=== PATIENT | male | born 1985 | race Two or more races ===

== ENCOUNTER 2017-11-26 17:32 | Emergency (ER) | payer OTHER ==
[~2017-11-26] VITALS: Ht 180.3 cm; Wt 83.9 kg
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
--- NOTE | 2017-11-26 19:59 | NUR ---
RECIEVED REPORT FROM YANN BASS. INFORMED ME THAT PT HAD STEPPED OUT OF THE HOSP WITH [employer] AND HAS NOT BEEN SEEN SINCE. PT HAD ELOPED PRIOR TO START OF SHIFT.
[2017-11-26 20:26] VITALS: BP 128/80
== END 2017-11-26 20:27 | disposition left against medical advice (07) ==
LOC: ER 17:35
DX: S31.100D Unspecified open wound of abdominal wall, right upper quadrant without penetration into peritoneal cavity, subsequent encounter (principal)
CPT/HCPCS: 99283; A4606; Z7610

== ENCOUNTER 2020-04-11 15:41 | Inpatient (IN) | payer MEDICAID ==
[~2020-04-11] VITALS: Ht 177.8 cm; Wt 70.8 kg
--- NOTE | 2020-04-11 15:45 | NUR ---
PT BIB RA 878,SUDDEN EPIGASTRIC PAIN X 20 MINUTES AFTER EATING PORK RIND. VS CHECKED. SEEN BY
[2020-04-11] MEDS ORDERED: LIDOCAINE VISCOUS 2% UD 15 ML UDC ONE (15:59)
[2020-04-11] MEDS ORDERED: ONDANSETRON HCL/PF 4 MG/2 ML VIAL ONE (15:59)
[2020-04-11] MEDS ORDERED: FAMOTIDINE/PF INJ 20 MG/2 ML VIAL IV ONE ×2 (15:59→16:00)
[2020-04-11] MEDS ORDERED: MAG HYDROX/AL HYDROX/SIMETH 30 ML UDC ONE (15:59)
[2020-04-11] MEDS ORDERED: ONDANSETRON HCL/PF 4 MG/2 ML VIAL IVP ONE (16:00)
[2020-04-11] MEDS ORDERED: IV NS 0.9% 1,000 ML BAG IV ONE (16:00)
[2020-04-11] MEDS ORDERED: LIDOCAINE VISCOUS 2% UD 15 ML UDC MM ONE (16:00)
[2020-04-11] MEDS ORDERED: MAG HYDROX/AL HYDROX/SIMETH 30 ML UDC PO ONE (16:00)
[2020-04-11 16:26] LABS: BASOPHILS % (AUTO) 0.2 % (0.0-2.0); EOSINOPHILS % (AUTO) 0.9 % (0.0-6.0); HEMATOCRIT 44 % (39-51); HEMOGLOBIN 14.5 g/dL (13.5-17.5); LYMPHOCYTES # (AUTO) 1.9 /CMM (0.8-4.8); LYMPHOCYTES % (AUTO) 12.1 % (20.0-44.0); MEAN CORPUSCULAR HGB CONC 33 g/dl (31.0-36.0); MEAN CORPUSCULAR VOLUME 90 fL (80-96); MONOCYTES # (AUTO) 1.1 /CMM (0.1-1.30); MONOCYTES % (AUTO) 7.3 % (2.0-12.0); NEUTROPHILS # (AUTO) 12.2 /CMM (1.8-8.9); NEUTROPHILS % (AUTO) 79.5 % (43.0-81.0); PLATELET COUNT (AUTO) 280 /CMM (150-450); RED BLOOD CELL COUNT(AUTO) 4.86 MIL/uL (4.5-6.0); WHITE BLOOD COUNT (AUTO) 15.3 K/uL (4.3-11.0)
--- NOTE | 2020-04-11 16:33 | NUR ---
attempting to collect urine, but pt states he still is unable to pee at the moment.
[2020-04-11 16:38] LABS: CALCIUM, SERUM 8.7 mg/dL (8.5-10.1); CREATININE 1.3 mg/dL (0.6-1.3); POTASSIUM 3.6 mmol/L (3.5-5.1)
[2020-04-11 17:00] LABS: ALBUMIN 3.5 g/dL (3.4-5.0); BILIRUBIN,DIRECT 0.1 mg/dL (0.0-0.2); BILIRUBIN,TOTAL 0.4 mg/dL (0.2-1.0); TOTAL PROTEIN, SERUM 7.1 g/dL (6.4-8.2)
[2020-04-11 17:14] LABS: BILIRUBIN,URINE Negative (NEGATIVE); BLOOD, URINE Negative Ery/uL (NEGATIVE); COLOR,URINE YELLOW (YELLOW); LEUKOCYTE ESTERASE ,URINE Negative (NEGATIVE); NITRITE, URINE Negative (NEGATIVE); PH,URINE 6.5 (5.0-8.0); PROTEIN,URINE Negative (NEGATIVE); UGLUCOSE Negative (NEGATIVE); UROBILINOGEN,URINE 0.2 EU/dL (0.2)
[2020-04-11] MEDS ORDERED: PIPERACILLIN /TAZOBACTAM 3.375 G in IV D5W 50 ML IV ONE (17:30)
[2020-04-11] MEDS ORDERED: MORPHINE SULFATE INJ 2 MG/ML DISP.SYRIN IV ONE (17:30)
[2020-04-11] MEDS ORDERED: FLAGYL/NS RTU 500 MG/100 ML PIGGYBACK IV ONE (17:30)
[2020-04-11] MEDS ORDERED: VANCOMYCIN 1 GM in IV D5W 250 ML IV ONE (17:30)
--- NOTE | 2020-04-11 17:54 | NUR ---
PAGED EPIC, SECOND ATTEMPT.
--- NOTE | 2020-04-11 18:15 | NUR ---
REFUSED TO BE SWABBED FOR COVID TESTING
--- NOTE | 2020-04-11 18:30 | NUR ---
consent obtained from pt for procedure
[2020-04-11] MEDS ORDERED: MORPHINE SULFATE INJ 4 MG/ML DISP.SYRIN ONE (18:37)
[2020-04-11] MEDS ORDERED: METRONIDAZOLE 500MG/ NS 100ML 500 MG in PREMIX 1 EA IV ONE (19:00)
--- NOTE | 2020-04-11 19:17 | NUR ---
LAB CALLED REGARDING NEGATIVE COVID RESULT.
[2020-04-11] MEDS ORDERED: BUPIVACAINE 0.25% 75 MG/30 ML VIAL ONE (19:19)
[2020-04-11] MEDS ORDERED: ANESTHESIA TRAY IN PYXIS 1 EA TRAY MC ONE (19:19)
[2020-04-11] MEDS ORDERED: LIDOCAINE 1% INJ 50 ML MDV IJ ONE (19:19)
[2020-04-11] MEDS ORDERED: ONDANSETRON HCL/PF 4 MG/2 ML VIAL IVP PRN (19:30)
[2020-04-11] MEDS ORDERED: IV NS 0.9% 1,000 ML IV PRN (19:30)
[2020-04-11] MEDS ORDERED: MORPHINE SULFATE INJ 2 MG/ML DISP.SYRIN IV PRN (19:30)
[2020-04-11] MEDS ORDERED: FENTANYL PF 100MCG/2ML AMPUL ONE (19:36)
[2020-04-11] MEDS ORDERED: MIDAZOLAM HCL 2 MG/2ML VIAL ONE (19:36)
[2020-04-11] MEDS ORDERED: ROCURONIUM BROMIDE 50 MG/5 ML ONE (19:36)
[2020-04-11] MEDS ORDERED: SUCCINYLCHOLINE CHLORIDE 20 MG/ML VIAL ONE (19:36)
--- NOTE | 2020-04-11 19:38 | NUR ---
PATIENT TAKEN TO SURGERY BY TEAM
[2020-04-11] MEDS ORDERED: METHYLENE BLUE 10 ML VIAL ONE (20:29)
--- NOTE | 2020-04-11 20:42 | NUR ---
NEW BED IS 111
--- NOTE | 2020-04-11 20:45 | NUR ---
RN NOTES RECEIVED CALL FROM ER, SPOKE WITH JAVY (RN) HE PROVIDED REPORT REGARDING PATIENT. PATIENT CURRENTLY IN OR FOR LAPAROSCOPY WITH INTENT TO FIND AND CLOSE PERFORATED INTESTINE. ONCE PT IS OUT OF OR WILL BE TRANSFERRED AND ADMITTED TO [facility] ROOM 111. GLASS LOADING EQUIPMENT TENDER MADE AWARE. AWAITING PATIENT TO BE TRANSFERRED TO [facility] RM 111.
--- NOTE | 2020-04-11 20:51 | NUR ---
REPORT GIVEN TO ISIDORO COELLO RN FOR ISSAC.
--- NOTE | 2020-04-11 23:00 | NUR ---
"RN NOTE | ADMISSION RECEIVED PATIENT FROM OR S/P LAPAROSCOPY WITH INTENT TO FIND AND CLOSE PERFORATED INTESTINE POSSIBLE EXPLORATORY LAPAROTOMY, ABD WASH OUT AND PLACEMENT OF MORRO DRAIN, VIA MEDICAL BED ACCOMPANIED BY 2 STAFF RNs AND TRANSFERRED TO BED VIA 2 PERSON ASSIST IN ROOM 11. PT IS ALERT AND ORIENTED X3-4. PT ON ROOM AIR WITH RESPIRATIONS EVEN AND UNLABORED. COMPREHENSIVE PHYSICAL ASSESSMENT DONE. CALL LIGHT WITHIN REACH, SAFETY MEASURES IN PLACE, WILL CONTINUE MONITOR AND ASSESS THROUGHOUT THE SHIFT. WILL CARRY OUT MD ORDERS ACCORDINGLY."
[2020-04-11] MEDS ORDERED: HYDROMORPHONE 1 MG/1 ML DISP.SYRIN IV PRN ×2 (23:30)
[2020-04-12] VITALS: BP 119/73
[2020-04-12] MEDS ORDERED: PIPERACILLIN /TAZOBACTAM 4.5 G in IV D5W 50 ML IV SCH ×2
--- NOTE | 2020-04-12 00:02 | NUR ---
RN NOTES Felisha Bentley from [facility] called to relay CT result. Dawson, primary RN aware. Patient just came from surgery
[2020-04-12] MEDS: IV LR 1000 ML 1,000 ML IV PRN ×3 (00:19→17:40)
[2020-04-12] MEDS: PIPERACILLIN /TAZOBACTAM 3.375 G in IV D5W 100 ML IV SCH ×4 (00:21→23:08)
[2020-04-12] MEDS: PANTOPRAZOLE 40 MG VIAL IV SCH ×3 (00:23→20:39)
--- NOTE | 2020-04-12 01:45 | NUR ---
RN NOTES COMMUNICATED AND ENDORSED TO MARCO BERNAL THE FOLLOWING CXR RESULT: 1. The distal tip of the new nasogastric tube is just below the diaphragm the side-hole projecting in the distal esophageal region, advancement of the catheter by 10 cm is recommended. 2. There is evidence for acute intrathoracic abnormality.3. Small amount of pneumoperitoneum below the right hemidiaphragm correlates with the CT abdomen findings performed earlier. MARCO BERNAL ACKNOWLEDGED. ADVISED PRIMARY RN TO ADVANCE INSERTION OF NGT CATHETER BY 10 CM, THEN WILL NEED REPEAT CXR TO CHECK FOR PLACEMENT. BALLISTIC TECHNICIAN MADE AWARE AND WILL CARRY OUT ORDER ADVISED.
--- NOTE | 2020-04-12 03:00 | NUR ---
RN NOTES NO NOTED CHANGES TO PATIENT CONDITION/STATUS. KNOCKUP WORKER MADE AWARE. WILL CONTINUE TO MONITOR AND REASSESS FOR ANY CHANGES THROUGHOUT THE SHIFT.
[2020-04-12 04:00] VITALS: BP 123/71
--- NOTE | 2020-04-12 04:10 | NUR ---
RN NOTES CARRIED OUT MD ORDER TO ADVANCE NGT PLACEMENT BY 10CM; PLACEMENT VERIFIED AND CONFIRMED VIA AUSCULTATION WITH ANOTHER RN (VIVIAN). WILL REQUEST FOR STAT CHEST XRAY TO VERIFY AND CONFIRM PLACEMENT. SUPERVISOR DOG LICENSE OFFICER MADE AWARE. WILL CONTINUE TO ASSESS AND MONITOR THROUGHOUT THE SHIFT.
[2020-04-12 06:30] LABS: HEMATOCRIT 43 % (39-51); HEMOGLOBIN 14.2 g/dL (13.5-17.5); LYMPHOCYTES # (AUTO) 0.6 /CMM (0.8-4.8); LYMPHOCYTES % (AUTO) 3.3 % (20.0-44.0); MEAN CORPUSCULAR HGB CONC 33 g/dl (31.0-36.0); MEAN CORPUSCULAR VOLUME 90 fL (80-96); MONOCYTES # (AUTO) 0.9 /CMM (0.1-1.30); MONOCYTES % (AUTO) 5.1 % (2.0-12.0); NEUTROPHILS # (AUTO) 15.8 /CMM (1.8-8.9); NEUTROPHILS % (AUTO) 91.6 % (43.0-81.0); PLATELET COUNT (AUTO) 243 /CMM (150-450); RED BLOOD CELL COUNT(AUTO) 4.73 MIL/uL (4.5-6.0); WHITE BLOOD COUNT (AUTO) 17.3 K/uL (4.3-11.0)
--- NOTE | 2020-04-12 06:50 | NUR ---
RN NOTES PATIENT REMAINS IN ROOM IN NO SIGNS OF RESPIRATORY DISTRESS. PATIENT SATURATING 98% OF 02. VITAL SIGNS WNL. IV LINE MAINTAINED, INTACT, PATENT AND FLUSHING, NO SITE REDNESS OR INFILTRATION. SAFETY PRECAUTIONS IN PLACE AND COMFORT MEASURES RENDERED. BED IN LOWEST POSITION, CALL LIGHT WITHIN REACH, BREAKS ON, SIDE RAILS UP. ALL NEEDS ATTENDED, MEDICATIONS GIVEN SCHEDULED AND ORDERED ; SHIFT ASSESSMENT/BEDBATH/SKIN CARE DONE. PATIENT KEPT CLEAN AND DRY. WILL ENDORSE TO INCOMING SHIFT FOR ISSAC WITH ALL PERTINENT INFO REGARDING PATIENT STATUS.
[2020-04-12 07:03] LABS: CALCIUM, SERUM 8.4 mg/dL (8.5-10.1); CREATININE 0.9 mg/dL (0.6-1.3); MAGNESIUM 2.4 mg/dL (1.8-2.4); PHOSPHORUS 3.5 mg/dL (2.5-4.9); POTASSIUM 4.2 mmol/L (3.5-5.1)
--- NOTE | 2020-04-12 07:10 | NUR ---
RN INITIAL NOTES RECEIVED PT ASLEEP, EASY TO AROUSE. ON ROOM AIR. NO RESPIRATORY DISTRESS NOTED. HOB ELEVATED. NO SIGNS OF PAIN NOTED. RIGHT NARE NGT IN PLACE CONNECTED TO LOW INTERMITTENT SUCTION. IV LINE IN PLACE. IVF INFUSING. COX IN PLACE. NO HEMATURIA NOTED. WILL CLOSELY MONITOR
[2020-04-12 07:16] LABS: THYROID STIMULATING HORMONE 0.23 uIU/mL (0.358-3.74)
[2020-04-12 08:00] VITALS: BP 114/85
--- NOTE | 2020-04-12 13:00 | NUR ---
RN NOTES SEEN BY DR BENTLEY. AWARE OF LAB VALUES AND CXR RESULT. NGT CONNECTED TO LOW SUCTION. REMAINS NPO. WILL CONTINUE TO MONITOR
[2020-04-12 16:00] VITALS: BP 139/91
[2020-04-12] MEDS ORDERED: ACETAMINOPHEN 650 MG/SUPP.RECT RC PRN (16:30)
--- NOTE | 2020-04-12 18:31 | NUR ---
RN CLOSING NOTES NO SIGNIFICANT CHANGE NOTED. PT REMAINS NPO. NGT CONNECTED TO LOW INTERMITTENT SUCTION, BROWNISH OUTPUT NOTED. IVF INFUSING. PT REFUSED TYLENOL SUPPOSITORY FOR LOW GRADE FEVER, OFFERED 3X, RESPECTED PT'S RIGHTS. COX IN PLACE. KEPT COMFORTABLE. CALL LIGHT WITHIN REACH. WILL ENDORSE FOR CONTINUITY OF CARE
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
[2020-04-12 20:00] VITALS: BP 139/68
--- NOTE | 2020-04-12 20:05 | NUR ---
RN NOTES NOTED PT'S TEMP 99.5@0400. COOLING MEASURES PROVIDED. RADHA LERNER MADE AWARE. WILL RE-EVALUATE AFTER 30 MINUTES- 1 HOUR. WILL CONTINUE TO MONITOR Addendum: 04/12/20 at 2250 by CORRY COELLO RN AT 2130 RECHECKED PT'S TEMP PATIENT TEMP WENT DOWN FROM 99.5 TO 99.0. RADHA LERNER MADE AWARE. WILL CONTINUE COOLING MEASURES IF TEMP WILL BE CONSTANTLY HIGH WILL ADMINISTER PRN MEDICATION. WILL CONTINUE TO MONITOR AND ASSESS THROUGHOUT THE SHIFT
--- NOTE | 2020-04-12 22:00 | NUR ---
RN NOTES NO NOTED CHANGES TO PATIENT CONDITION/STATUS. NURSE AUDITOR MADE AWARE. WILL CONTINUE TO MONITOR AND REASSESS FOR ANY CHANGES THROUGHOUT THE SHIFT.
[2020-04-13] MEDS: IV LR 1000 ML 1,000 ML IV PRN ×2 (02:24→11:57)
--- NOTE | 2020-04-13 02:30 | NUR ---
RN NOTES NO NOTED CHANGES TO PATIENT CONDITION/STATUS. POURING CRANE OPERATOR MADE AWARE. WILL CONTINUE TO MONITOR AND REASSESS FOR ANY CHANGES THROUGHOUT THE SHIFT.
--- NOTE | 2020-04-13 02:57 | NUR ---
RN NOTES REPORT GIVEN TO YANN DAVIS FOR ISSAC.
--- NOTE | 2020-04-13 03:30 | NUR ---
RN NOTES PRIMARY RN RESUMED CARE FOR ISSAC. SKIVER UPPERS OR LININGS MADE AWARE. WILL CONTINUE TO MONITOR AND ASSESS UNTIL THE END OF SHIFT
[2020-04-13 04:00] VITALS: BP 125/74
--- NOTE | 2020-04-13 06:00 | NUR ---
RN NOTES RN CHECK PLACEMENT of NG-TUBE ( @ R NARES; 60CM AT NOSE TIP), PLACEMENT VERIFIED AND CONFIRMED VIA AUSCULTATION WITH ANOTHER RN (VIVIAN). CITIZEN PARTICIPATION SPECIALIST MADE AWARE.
[2020-04-13] MEDS: PIPERACILLIN /TAZOBACTAM 3.375 G in IV D5W 100 ML IV SCH ×3 (06:02→23:09)
[2020-04-13 06:46] LABS: BASOPHILS # (AUTO) 0.1 /CMM (0.0-0.2); BASOPHILS % (AUTO) 0.4 % (0.0-2.0); EOSINOPHILS % (AUTO) 0.6 % (0.0-6.0); HEMATOCRIT 42 % (39-51); LYMPHOCYTES # (AUTO) 2.3 /CMM (0.8-4.8); LYMPHOCYTES % (AUTO) 18.5 % (20.0-44.0); MEAN CORPUSCULAR HGB CONC 34 g/dl (31.0-36.0); MEAN CORPUSCULAR VOLUME 90 fL (80-96); MONOCYTES # (AUTO) 1.2 /CMM (0.1-1.30); MONOCYTES % (AUTO) 10.2 % (2.0-12.0); NEUTROPHILS # (AUTO) 8.6 /CMM (1.8-8.9); NEUTROPHILS % (AUTO) 70.3 % (43.0-81.0); PLATELET COUNT (AUTO) 260 /CMM (150-450); RED BLOOD CELL COUNT(AUTO) 4.63 MIL/uL (4.5-6.0); WHITE BLOOD COUNT (AUTO) 12.3 K/uL (4.3-11.0)
--- NOTE | 2020-04-13 06:48 | NUR ---
RN NOTES PATIENT REMAINS IN ROOM IN NO SIGNS OF RESPIRATORY DISTRESS. PATIENT SATURATING 99% OF 02. VITAL SIGNS WNL. IV LINE MAINTAINED, INTACT, PATENT AND FLUSHING, NO SITE REDNESS OR INFILTRATION. SAFETY PRECAUTIONS IN PLACE AND COMFORT MEASURES RENDERED. BED IN LOWEST POSITION, CALL LIGHT WITHIN REACH, BREAKS ON, SIDE RAILS UP. ALL NEEDS ATTENDED, MEDICATIONS GIVEN SCHEDULED AND ORDERED ; SHIFT ASSESSMENT/BEDBATH/SKIN CARE DONE. PATIENT KEPT CLEAN AND DRY. WILL ENDORSE TO INCOMING SHIFT FOR ISSAC WITH ALL PERTINENT INFO REGARDING PATIENT STATUS.
[2020-04-13 07:05] LABS: CALCIUM, SERUM 8.5 mg/dL (8.5-10.1); CREATININE 0.9 mg/dL (0.6-1.3); MAGNESIUM 2.2 mg/dL (1.8-2.4); PHOSPHORUS 2.4 mg/dL (2.5-4.9); POTASSIUM 3.5 mmol/L (3.5-5.1)
--- NOTE | 2020-04-13 07:49 | NUR ---
RN Opening Note Received patient in bed, able to responds all stimuli, does no appears pain or discomfort of abdomen. Respiratory even and unlabored on room air O2sat 98%, no distress or SOB observed. Skin is warm to touch keep clean/dry, intact IV site on right upper arm 20g running LR at 125ml/hr keep on NPO status. Kept locked bed with elevated HOB for ensure airway and aspiration precaution and lowest position for safety. Call light within reach, will continue to monitor.
[2020-04-13] MEDS: PANTOPRAZOLE 40 MG VIAL IV SCH ×2 (08:27→20:42)
[2020-04-13] MEDS ORDERED: Sodium Phosphate 15 MMOL in IV NS 0.9% 245 ML IV SCH (11:30)
[2020-04-13] MEDS ORDERED: PHENAZOPYRIDINE HCL 200 MG TABLET PO ONE (16:00)
[2020-04-13] MEDS ORDERED: LORAZEPAM INJ 2 MG/ML VIAL IV PRN (16:00)
[2020-04-13] MEDS: Thiamine 100 MG in IV D5W 50 ML IV SCH (17:39)
[2020-04-13] MEDS: Folic acid 1 MG in IV D5W 50 ML IV SCH (18:14)
--- NOTE | 2020-04-13 18:37 | NUR ---
RN Closing note Patient in bed resting, does no appears discomfort, skin is warm to touch keep clean/dry. Received new order from DIE CASTING MACHINE OPERATOR/Scott: pt d/c kenzie and given Pyridium po 200 mg, hold NG suction for one hour and resumed suction. Educated patient to use urinal, walk as tolerated and patient able to stand up. Respiratory even and unlabored on room air O2sat 98%, no sob or distress observed. Kept locked bed and elevated HOB for ensure airway and aspiration precaution, and lowest position for safety, bed alarm is on at all the times, call light within reach, will endorse manufacturing supervisor 2nd shift.
[2020-04-13 20:00] VITALS: BP 127/89
--- NOTE | 2020-04-13 20:00 | NUR ---
ms rn opening note received pt in bed. a/o x4. Breathing even and unlabored. Denies sob or acute distress noted. IV site patent and intact. iv fluids infusing well. ngtube patent and intact. on intermittent low suction ,tolerating well. laurence drain inplace. no output noted. all needs rendered. bed in lowest position. call light within reach. will continue to monitor.
[2020-04-14] MEDS ORDERED: PHENAZOPYRIDINE HCL 200 MG TABLET PO ONE
[2020-04-14] MEDS: IV LR 1000 ML 1,000 ML IV PRN ×3 (02:16→19:49)
[2020-04-14 04:00] VITALS: BP 116/82
[2020-04-14 05:46] LABS: BASOPHILS % (AUTO) 0.4 % (0.0-2.0); EOSINOPHILS % (AUTO) 1.9 % (0.0-6.0); HEMATOCRIT 42 % (39-51); LYMPHOCYTES # (AUTO) 1.7 /CMM (0.8-4.8); LYMPHOCYTES % (AUTO) 15.7 % (20.0-44.0); MEAN CORPUSCULAR HGB CONC 34 g/dl (31.0-36.0); MEAN CORPUSCULAR VOLUME 89 fL (80-96); MONOCYTES # (AUTO) 1.1 /CMM (0.1-1.30); MONOCYTES % (AUTO) 10.1 % (2.0-12.0); NEUTROPHILS % (AUTO) 71.9 % (43.0-81.0); PLATELET COUNT (AUTO) 253 /CMM (150-450); RED BLOOD CELL COUNT(AUTO) 4.67 MIL/uL (4.5-6.0); WHITE BLOOD COUNT (AUTO) 11.1 K/uL (4.3-11.0)
[2020-04-14 06:12] LABS: CALCIUM, SERUM 8.6 mg/dL (8.5-10.1); CREATININE 0.8 mg/dL (0.6-1.3); PHOSPHORUS 3.3 mg/dL (2.5-4.9); POTASSIUM 3.5 mmol/L (3.5-5.1)
--- NOTE | 2020-04-14 06:34 | NUR ---
ms rn note pt in bed, sleeping but easily arousable. Breathing even and unlabored with no sob or acute distress noted. no s/s of pain. laurence drain in place with no output noted. ngt in place with intermitted suction 250ml brownish output noted. iv site patent and intact. all needs rendered. kept clean and dry. call light within reach. bed in lowest position. Will endorse to am nurse for continuity of care.
--- NOTE | 2020-04-14 07:30 | NUR ---
RN NOTES PATIENT IN BED,ALERT ORIENTED X 4,NO ACUTE DISTRESS NOTED, NO SOB. WITH NGTUBE INTERMITTENT SUCTION WITH 250ML BROWNISH OUTPUT REPORTED FROM PREVIOUS SHIFT.. PATIENT NPO. WITH LEFT ARM AND RIGHT KNEE SCABS DRY AND INTACT. MORRO DRAIN AT MID ABDOMEN IN PLACE, NO OUTPUT REPORTED FROM PREVIOUS SHIFT. PATIENT WITH RIGHT 20 G IV INTACT, WITH NO SIGNS OF INFILTRATION. ALL SAFETY MEASURES IMPLEMENTED PER PROTOCOL. BED LOCKED IN LOWEST POSITION. CALL LIGHT WITHIN REACH.
[2020-04-14 08:00] VITALS: BP 120/78
[2020-04-14] MEDS: PIPERACILLIN /TAZOBACTAM 3.375 G in IV D5W 100 ML IV SCH ×3 (08:42→23:12)
[2020-04-14] MEDS: PANTOPRAZOLE 40 MG VIAL IV SCH ×2 (08:42→21:08)
--- NOTE | 2020-04-14 13:16 | NUR ---
[facility] consult requested by Dr. Adryan Minor as patient is homeless. Patient is a 34 year-old Male. Patient reports that he has been homeless for 5 months. Patient reports that he was unemployed however had been working for one month prior to his admission. Patient reports that he had begun to save money for an apartment. Patient is currently under stress that he may not be ultimately selected for this apartment. SW and patient discussed follow-up with the apartment landlord informing them regarding patient's current hospitalization. Patient stated he would speak to the landlord regarding the apartment status. Patient reports that he is currently not receiving government assistance and patient and SW discussed government assistance resources, patient declined these resources. Patient reports that he does not have a mental health diagnosis. Patient denies suicidal and homicidal ideation. Patient reports that he has frequent drug, alcohol, and cigarette use. Patient reports that he drinks 2-3 beers every single day. Patient reports the use of marijuana every day. Patient also reports smoking one pack of cigarettes every day. SW and patient discussed referral for treatment and patient denied stating "That doesn't work. It only works if I really want to change. I can't change yet but I know one day I will." SW assessed patient's needs and discussed with the patient about community resources. Patient stating that he has an apartment and would like this SW to follow-up with the patient regarding apartment status prior to providing community resources. SW acknowledged patient's request and will follow-up with the patient. Plan: SW to follow-up with the patient regarding patient's apartment status. SW to remain available for all needs regarding this patient.
--- NOTE | 2020-04-14 13:25 | NUR ---
RN NOTES RECEIVED ORDER TO D/C NGTUBE. REMOVED NGT, PATIENT TOLERATED, DENIES PAIN. NO DISTRESS NOTED.
[2020-04-14 16:00] VITALS: BP 117/78
--- NOTE | 2020-04-14 18:38 | NUR ---
RN NOTES PATIENT IN BED, ALERT ORIENTED X 4. NOT IN ANY ACUTE DISTRESS, DENIES ANY PAIN AT THIS TIME. PATIENT STARTED CLEAR LIQUID DIET, TOLERATED WELL, NO NAUSEA AND VOMITING NOTED. RIGHT UPPER ARM IV G18 PATENT AND INTACT, LR RUNNING AT 125ML/HR, NO SIGNS OF INFILTRATION OR INFECTION. MORRO DRAIN IN MID ABDOMEN IN PLACE WITH NO OUTPUT. SCABS ON LEFT ARM AND RIGHT KNEE DRY AND INTACT. ALL SAFETY MEASURES IMPLEMENTED PER PROTOCOL, SIDE RAILS UP. BED LOCKED, IN LOWEST POSITION. CALL LIGHT WITHIN REACH. WILL ENDORSE TO NEXT SHIFT FOR ISSAC
[2020-04-14] MEDS: Thiamine 100 MG in IV D5W 50 ML IV SCH (19:58)
[2020-04-14 20:00] VITALS: BP 105/94
--- NOTE | 2020-04-14 20:00 | NUR ---
ms rn opening note Received pt in bed. a/o x4. Breathing even and unlabored. Denies sob or acute distress noted. IV site patent and intact. MORRO drain in place with no output noted. All needs rendered. Bed in lowest position. Call light within reach. Will continue to monitor.
[2020-04-14] MEDS: Folic acid 1 MG in IV D5W 50 ML IV SCH (21:02)
[2020-04-15] MEDS: IV LR 1000 ML 1,000 ML IV PRN ×2 (03:55→15:28)
[2020-04-15 04:00] VITALS: BP 120/82
[2020-04-15] MEDS: PIPERACILLIN /TAZOBACTAM 3.375 G in IV D5W 100 ML IV SCH ×2 (06:01→16:14)
--- NOTE | 2020-04-15 06:47 | NUR ---
MS RN Closing note Pt in bed, sleeping but easily arousable. Denies any pain or discomfort. GISELLE IV site patent and intact. IV fluids and antibiotic infusing well. MORRO drain in place without output noted. Dressing clean and dry. Pt denies pain around the site. All needs rendered. Call light within reach. Bed in lowest position. Srx2 up. Will endorse to am nurse for continuity of care.
[2020-04-15 08:00] VITALS: BP 115/79
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
[2020-04-15] MEDS: PANTOPRAZOLE 40 MG VIAL IV SCH (09:32)
[2020-04-15] MEDS ORDERED: ONDANSETRON HCL/PF 4 MG/2 ML VIAL IVP PRN (12:30)
--- NOTE | 2020-04-15 14:40 | NUR ---
This SW followed up with the patient regarding apartment status that he and this SW spoke about yesterday. Patient confirmed to this SW that he will be following up with the landlord of this apartment once he is medically discharged. Patient reports that the landlord will not rent out this apartment to anyone but him. Patient stated that he will be discharged today, SW to confirm with nursing staff regarding discharge date. SW remains available for all needs regarding this patient.
[2020-04-15 16:00] VITALS: BP 113/79
--- NOTE | 2020-04-15 16:51 | NUR ---
DR SERRANO NOTIFIED OF PT WISH TO ADVANCE DIET OR POSSIBLE DISCHARGE.
--- NOTE | 2020-04-15 17:00 | NUR ---
PT REQUESTS TO LEAVE AMA. PT INSTRUCTED ON RATIONALE FOR HOSPITALIZATION, REQUESTS TO LEAVE. DR TIM SAUCEDO AND GI NOTIFIED.
--- NOTE | 2020-04-15 17:51 | NUR ---
patient wanted to leave,instructed that he still have drain and surgery need to remove it tomorrow and not to pull it out coz will coz bleeding infection even .patient still insisted he is going to leave [place] he has important personal matter to take care of,refused halfway and signed waiver and ama forms.heidi cox and steve notified.informed pt. to come back to ER for removal of drain per md and agreed.primary rn aware.
--- NOTE | 2020-04-15 18:00 | NUR ---
PT LEFT AMA. AMA FORMS SIGNED, HOMELESS WAIVER SIGNED, BELONGINGS SIGNED BY RN AND PATIENT. ALL FORMS SIGNED AND GIVEN TO PT. ALL MICHAELS AMOUNT RETRIEVED IN FULL FROM SAFE IN NURSING CASHIER OFFICE SAFE. IV REMOVED, ALL ARMBANDS REMOVED. PT GIVEN INSTRUCTION TO RETURN TO EMERGENCY DEPARTMENT SOON POSSIBLE TO REMOVE MORRO DRAIN. DR SAUCEDO AND GI AWARE OF PT LEAVING WITH DRAIN. PT INSTRUCTED NOT TO REMOVE DRAIN DUE TO POTENTIAL BLEEDING RISK. LAST VITALS 97.9, HR 80, RR 18, O2 SAT 98%, BP 113/81.
--- NOTE | 2020-04-15 18:01 | NUR ---
PT REFUSE DC PHOTOS
[2020-04-15] MEDS ORDERED: PANTOPRAZOLE 40 MG TABLET.DR PO SCH (21:00)
[2020-04-16] MEDS ORDERED: FOLIC ACID 1 MG TABLET PO SCH (09:00)
[2020-04-16] MEDS ORDERED: THIAMINE HCL 100 MG TABLET PO SCH (09:00)
== END 2020-04-15 18:30 | disposition left against medical advice (07) | DRG 220 ==
LOC: ER 15:54 → TELE1 19:49 → MEDSG1 04-12 08:29
PROVIDERS: ATTEND Nurse Practitioner Acute Care
PROC: 0DU947Z Supplement Duodenum with Autologous Tissue Substitute, Percutaneous Endoscopic Approach (ICD-10-PCS; principal; 2020-04-11)
PROC: 0DQ94ZZ Repair Duodenum, Percutaneous Endoscopic Approach (ICD-10-PCS; 2020-04-11)
PROC: 3E1M38Z Irrigation of Peritoneal Cavity using Irrigating Substance, Percutaneous Approach (ICD-10-PCS; 2020-04-11)
DX: K26.5 Chronic or unspecified duodenal ulcer with perforation (principal); K65.9 Peritonitis, unspecified; D72.829 Elevated white blood cell count, unspecified; E87.1 Hypo-osmolality and hyponatremia; F17.210 Nicotine dependence, cigarettes, uncomplicated; K52.9 Noninfective gastroenteritis and colitis, unspecified; W34.09XS Accidental discharge from other specified firearms, sequela; K76.89 Other specified diseases of liver; Z72.89 Other problems related to lifestyle
CPT/HCPCS: 36415; 71045-TC; 76705-TC; 80048-TC; 80061-TC; 80076-TC; 81001; 83690-TC; 83735-TC; 83880; 84100-TC; 84443-TC; 85025-TC; 86850-TC; 87070-TC; 87075-TC; 87081-TC; A4216; A9563; C9113; C9803; G0378; J0330; J1100; J2250; J2270; J2405; J2543; J2704; J3010; J3370; J3411; J3490; J7030; J7050; J7060; J7120; Q9968

== ENCOUNTER 2020-04-19 03:51 | Emergency (ER) | payer MEDICAID ==
[~2020-04-19] VITALS: Ht 177.8 cm; Wt 79.4 kg
[2020-04-19 03:51] VITALS: BP 132/64
--- NOTE | 2020-04-19 04:12 | NUR ---
TECH AT BEDSIDE FOR BANDAGING SIT OF KATE-YAÑEZ DRAINAGE.
--- NOTE | 2020-04-19 04:13 | NUR ---
Patient discharged to home in stable condition. Written and verbal after care instructions given. Patient verbalizes understanding of instruction.
== END 2020-04-19 04:21 | disposition home or self-care (01) ==
LOC: ER 03:53
DX: Z48.01 Encounter for change or removal of surgical wound dressing (principal); F17.200 Nicotine dependence, unspecified, uncomplicated; Z60.2 Problems related to living alone

== ENCOUNTER 2020-08-08 09:43 | Emergency (ER) | payer MEDICAID ==
[~2020-08-08] VITALS: Ht 177.8 cm; Wt 77.1 kg
--- NOTE | 2020-08-08 10:00 | NUR ---
c/o right side abdominal pain since last night. Patient a/ox4, breathing even and unlabored, no sob noted, needs attended. Kept comfortable.
[2020-08-08] MEDS ORDERED: ONDANSETRON HCL/PF 4 MG/2 ML VIAL ONE (10:18)
[2020-08-08] MEDS ORDERED: MORPHINE SULFATE INJ 4 MG/ML DISP.SYRIN ONE (10:18)
[2020-08-08] MEDS ORDERED: FAMOTIDINE/PF INJ 20 MG/2 ML VIAL IV ONE ×2 (10:18→10:30)
[2020-08-08] MEDS ORDERED: MORPHINE SULFATE INJ 2 MG/ML DISP.SYRIN IV ONE (10:30)
[2020-08-08] MEDS ORDERED: IV NS 0.9% 1,000 ML BAG IV ONE ×2 (10:30)
[2020-08-08] MEDS ORDERED: ONDANSETRON HCL/PF 4 MG/2 ML VIAL IVP ONE (10:30)
[2020-08-08 10:31] LABS: BASOPHILS % (AUTO) 0.4 % (0.0-2.0); EOSINOPHILS % (AUTO) 1.7 % (0.0-6.0); HEMATOCRIT 47 % (39-51); HEMOGLOBIN 15.9 g/dL (13.5-17.5); LYMPHOCYTES % (AUTO) 19.5 % (20.0-44.0); MEAN CORPUSCULAR HGB CONC 34 g/dl (31.0-36.0); MEAN CORPUSCULAR VOLUME 86 fL (80-96); MONOCYTES # (AUTO) 0.5 /CMM (0.1-1.30); MONOCYTES % (AUTO) 5.4 % (2.0-12.0); NEUTROPHILS # (AUTO) 7.3 /CMM (1.8-8.9); PLATELET COUNT (AUTO) 291 /CMM (150-450); RED BLOOD CELL COUNT(AUTO) 5.49 MIL/uL (4.5-6.0)
--- NOTE | 2020-08-08 10:41 | NUR ---
PATIENT TAKEN TO CT.
[2020-08-08 10:46] LABS: ALBUMIN 3.9 g/dL (3.4-5.0); BILIRUBIN,DIRECT 0.2 mg/dL (0.0-0.2); BILIRUBIN,TOTAL 0.9 mg/dL (0.2-1.0); CALCIUM, SERUM 9.2 mg/dL (8.5-10.1); CREATININE 0.9 mg/dL (0.6-1.3); POTASSIUM 3.9 mmol/L (3.5-5.1); TOTAL PROTEIN, SERUM 7.4 g/dL (6.4-8.2)
[2020-08-08] MEDS ORDERED: LANS30CA54 PO (12:38)
[2020-08-08] MEDS ORDERED: PANTOPRAZOLE 40 MG TABLET.DR PO ONE ×2 (12:57→13:00)
--- NOTE | 2020-08-08 13:06 | NUR ---
Patient discharged to home in stable condition. Written and verbal after care instructions given. Patient verbalizes understanding of instruction.IV removed. Catheter intact and site benign. Pressure and 4x4 applied to site. No bleeding noted.
[2020-08-08 13:07] VITALS: BP 118/82
== END 2020-08-08 13:07 | disposition home or self-care (01) ==
LOC: ER 09:45
DX: K29.70 Gastritis, unspecified, without bleeding (principal); F17.200 Nicotine dependence, unspecified, uncomplicated; Z98.890 Other specified postprocedural states; Z60.2 Problems related to living alone; Z59.0 Homelessness
CPT/HCPCS: 36415; 74176; 80048; 80076; 83690; 85025; 85730; 86850; 96361; 96374; 96375; 99284; J2270; J2405; J3490; J7030